=== PATIENT | female | born 1965 | race African-American/Black ===

== ENCOUNTER 2019-08-30 15:44 | Inpatient (IN) ==
--- NOTE | 2019-08-30 17:43 | PROVIDER DOCUMENTATION ---
HPI-General Adult - General Chief Complaint: Post Op Complaint Stated Complaint: NECK SWELLING Time Seen by Provider: 08/30/19 17:09 Source: patient Allergies/Adverse Reactions: Patient Allergies Allergy/AdvReac Type Severity Reaction Status Date / Time No Known Allergies Allergy Verified 08/30/19 17:13 Home Medications: Home Medication List Medication Instructions Recorded Confirmed Last Taken Type Losartan/Hydrochlorothiazide 1 tab PO DAILY 08/19/14 08/30/19 08/30/19 History [Hyzaar 100/25 Tablet] Ibandronate [Boniva] 150 mg PO DIRECTED 04/22/18 08/30/19 1 Month Ago History ~07/31/19 Amlodipine [Norvasc] 5 mg PO DAILY 07/12/19 08/30/19 08/30/19 History Magnesium Oxide 400 mg PO DIRECTED 07/12/19 08/30/19 1 Day Ago History ~08/29/19 Levothyroxine [Synthroid] 1 tab PO DAILY 08/07/19 08/30/19 08/30/19 History Folic Acid 1 mg PO DAILY 08/30/19 08/30/19 08/30/19 History - History of Present Illness -Gen Adult Nature of Presenting Problems: c/o right neck pain and swelling of several days duration on the site of insertion of a port-a-cath for treatment of lung cancer Location of Pain/Injury: reports: neck (right neck pain and swelling) Quality of Pain: reports: throbbing Timing: reports: still present Context/Activities at Onset: reports: none Modifying Factors: improves with: lying down Associated Symptoms: reports: denies symptoms Similar Symptoms Previously?: No Recently seen or treated by another doctor?: No Review of Systems - Adult - REVIEW OF SYSTEMS - ADULT Constitutional: reports: no symptoms reported Eyes: reports: no symptoms reported Ears, Nose, Mouth & Throat: reports: no symptoms reported Cardiovascular: reports: no symptoms reported Respiratory: reports: no symptoms reported Gastrointestinal: reports: no symptoms reported Genitourinary: reports: no symptoms reported Musculoskeletal: reports: neck pain Integumentary: reports: no symptoms reported Neurological: reports: no symptoms reported Psychiatric: reports: no symptoms reported Endocrine: reports: no symptoms reported Past History - Adult - PAST MEDICAL HISTORY-ADULT Review of Records: reports: Nursing Assessment Review, Medications Reviewed, Social history reviewed & non-contributory. Major Childhood Illnesses: reports: denies history Cardiovascular: reports: HTN Respiratory: reports: denies history Gastrointestinal: reports: denies history Obstetrical/Gynecological: reports: denies history Genitourinary: reports: denies history Musculoskeletal: reports: denies history Neurological: reports: denies history Endocrine/Immune: reports: denies history Other Conditions: reports: other cancer (breast) - PRIOR SURGERIES/PROCEDURES Surgical/Procedure History: reports: hysterectomy, other (right mastectomy) - IMMUNIZATION STATUS Childhood Immunizations: See Nurse Assessment Flu Vaccine: See Nurse Assessment - FAMILY HISTORY Family History: reviewed, not pertinent - SOCIAL HISTORY Smoking: denies Substance Use: none/never Alcohol Use Frequency: never Physical Exam-General - CONSTITUTIONAL General Appearance: appears well - EYES Eyes: PERRL/EOMI - HEAD, EARS, NOSE, MOUTH & THROAT HENMT: normocephalic/atraumatic - NECK Neck: other (tenderness with mild swelling around the port - a-cath area of the right neck) - RESPIRATORY Respiratory: chest non-tender, lungs clear, normal breath sounds - CARDIOVASCULAR Cardiovascular: regular rate, rhythm - GASTROINTESTINAL (ABDOMEN) Abdominal Exam: non tender, soft - MUSCULOSKELETAL Extremity: non-tender, no calf tenderness - SKIN Integumentary: normal color - NEUROLOGIC Neurologic: grossly normal - PSYCHIATRIC Psych/Mental Status: oriented x 3 Progress - PLAN OF CARE/RESULTS Progress/Plan/Lab Results: Vital Signs - 8 hr 08/30/19 16:17 Temperature 98.0 F Pulse Rate 93 H Respiratory Rate 18 Blood Pressure 152/103 O2 Sat by Pulse Oximetry 97 Orders Category Date Time Status US SOFT TISSUE HEAD/NECK [US] Stat Exams 08/30/19 17:15 Ordered - CONSULTS/PCP/HOSPITALIST Notification #1 *Consult/PCP/Hospitalist*: surgeon Dr ramos Time Discussed: 20:34 (want patient to be admitted to hospitalist service for anticoagulation and he will be on consult.) #2 Consult: Hospitalist Dr rojas Time Discussed: 09:10 Consult Disposition: Admit Departure - Departure Date of Disposition Decision: 08/30/19 Time of Disposition Decision: 21:29 DIAGNOSIS: Port-A-Cath in place, Blood clot in vein Disposition: ADMITTED INPATIENT 09 Certified Medical Emergency: Emergent Condition: Fair Referrals and Follow-Ups: Cameron,Filippo A., MD [Primary Care Provider] - - Critical Care Note This patient required my direct & personal management of CC.: No Attestation - Physician/ GILBERT Attestation Patient care was provided by Advanced Practice Provider:: No The physician spent face to face time with patient:: Yes Advanced Practice Provider documentation review:: Supervising physician onsite and consulted in the evaluation and care of this patient. The physician did have a face to face encounter with the patient.
--- NOTE | 2019-08-30 20:19 | Diag Imaging Result Doc PS360 ---
EXAM: US SOFT TISSUE HEAD/NECK HISTORY: post op port-a-cath edema/pain TECHNIQUE: Neck ultrasound COMPARISON: None. FINDINGS: No fluid collection in the right side of the neck. There is occlusive thrombus within the right jugular vein. These results were given to the ER physician. Electronically signed by Aj Ramos 08/30/2019 8:17 PM
[2019-08-30] MEDS ORDERED: ZOFRAN IV PRN (21:19)
[2019-08-30] MEDS ORDERED: MORPHINE IV PRN (21:19)
[2019-08-30] MEDS: HEPARIN 25,000 UNITS/D5W 25,000 UNIT/250 ML IV.SOLN IV SCH (22:22)
--- NOTE | 2019-08-30 22:34 | HISTORY AND PHYSICAL ---
CHIEF COMPLAINT: Pain in the right side of the neck. HISTORY OF PRESENT ILLNESS: This 54-year-old obese black female has a remote history of breast cancer and was recently diagnosed with a cancerous mass in her right upper lobe. Last week Dr. Madera put in a Port-A-Cath for her. Over the course of the week, she stated that her neck just did not feel right. She had a little bit of difficulty swallowing, but she called the surgical office about this problem. They stated as long as that she was not swelling up terribly that it should be just normal recovery. Well unfortunately, the patient woke up this morning and her neck was swelled and it was more tender on that side and clearly enlarged by her own recollection. She presented to the emergency room. The emergency room physician ordered a head and neck ultrasound, which showed a thrombosis of the right jugular vein which was occlusive. They contacted Dr. Cai and he advised admission with anticoagulation. PAST MEDICAL HISTORY: 1. Breast cancer 2002 with mastectomy. 2. Obesity. 3. Hypertension. 4. Hypothyroidism. PAST SURGICAL HISTORY: 1. Mastectomy. 2. Tubal ligation. 3. Hysterectomy. SOCIAL HISTORY: The patient has 4 children. 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 She is . She is a nonuser of tobacco, nonuser of alcohol. She has never been a smoker. FAMILY HISTORY: Significant for diabetes and colon cancer. Her grandfather also had lung cancer. Her mother had breast cancer and esophageal cancer. REVIEW OF SYSTEMS: The patient's weight has been stable. She has had a normal appetite. She admitted to a little bit of swallowing difficulty since her surgery to put in the Port-A-Cath. Mainly this was mild sense of obstruction or fullness in the neck. She denies any nausea or vomiting. She has not had any abdominal pain. Denies chest pain, shortness of breath or palpitations. She has not had any fever or chills. She states that her neck is tender but not exquisitely so. It is also swollen, according to her, since this morning when she woke up. She has not had any genitourinary complaints. She has no musculoskeletal complaints although she states that her legs are "always swollen." PHYSICAL EXAMINATION: VITAL SIGNS: 98, 93, 18, 152/103, 97% saturated on room air. GENERAL: She is a well-developed obese black female in no acute distress. She is alert, oriented, conversive and appropriate. The face is not swollen. NECK: The right side of her neck shows a firm, masslike protrusion on the right side above the tiny incision made for her Port-A-Cath which is right about the level of the collarbone. The Port- A-Cath itself is not tender. The right side of her neck is tender, is very firm and relatively fixed. I do not detect any bruits. LUNGS: Clear to auscultation bilaterally. CARDIOVASCULAR: Regular at approximately 90 beats per minute at the time of my examination. ABDOMEN: Protuberant and difficult to examine. EXTREMITIES: Show that she has large legs but I cannot find any edema in the lower extremities. From neuropsych standpoint, the patient is functioning at baseline and there are no focal neurological deficits. LABORATORIES: No labs were drawn. RADIOLOGIC STUDIES: Ultrasound showed occlusive thrombus within the right jugular vein. ASSESSMENT AND PLAN: 1. Dr. Cai will be consulted to help us follow up with this. We will start the patient on a heparin IV protocol and monitor her progress. She will have q.6 hours PTTs drawn and adjustments will be made according to those findings. 2. The patient's thyroid and blood pressure medications will be continued as previously and will use p.r.n.s as necessary to keep her pressure under reasonable control. 3. Consideration of consultation with Dr. Carbajal may be in order. cc: Christopher Velasco MD [facility]
[2019-08-30 23:07] LABS: BASO# 0.01 X1000 (0.0-0.2); BASO% 0.1 % (0.0-0.8); EOS# 0.02 X1000 (0.0-0.7); EOS% 0.2 % (0.0-10.0); HEMATOCRIT 37.8 % (37.0-47.0); HEMOGLOBIN 11.9 g/dL (12.0-16.0); IMM GRAN# 0.02 X1000 (0.0-0.04); IMM GRAN% 0.2 % (0.0-0.5); LYMPH# 1.35 X1000 (1.2-3.4); LYMPH% 16.8 % (20.5-51.1); MCH 25.5 PG (27-31); MCHC 31.5 g/dL (33-37); MCV 80.9 FL (81-99); MONO# 0.65 X1000 (0.11-0.59); MONO% 8.1 % (1.7-9.3); MPV 8.8 FL (7.4-10.4); NEUT# 5.99 X1000 (1.4-6.5); NEUT% 74.6 % (42.2-75.2); PLT 259 X1000 (130-400); RBC 4.67 XMIL (4.2-5.4); WBC 8.04 X1000 (4.8-10.8)
[2019-08-30 23:30] LABS: AGAP 13; ALB/GLOB RATIO 0.9; ALBUMIN 3.6 g/dL (3.5-5.0); ALKALINE PHOSPHATASE 62 U/L (32-104); BUN 12 mg/dL (8-22); CALCIUM 8.6 mg/dL (8.8-10.2); CHLORIDE 100 mmol/L (98-107); COSMO 274; CREATININE 0.6 mg/dL (0.5-0.9); ESTIMATED GFR > 60; GLUCOSE 110 mg/dL (70-104); GOT 10 U/L (10-30); GPT 10 U/L (10-36); POTASSIUM 3.6 mmol/L (3.5-5.1); SODIUM 137 mmol/L (136-145); TCO2 24 mmol/L (25-35); TOTAL BILIRUBIN 0.56 mg/dL (0.20-1.00); TOTAL PROTEIN 7.5 g/dL (6.3-8.3)
[2019-08-30 23:38] LABS: INR 1.11; PROTIME 14.5 Seconds (11.0-16.0)
[2019-08-30 23:39] LABS: PTT 30.2 Seconds (22.3-41.8)
[2019-08-31] MEDS: TYLENOL PO PRN ×2 (05:41→15:44)
[2019-08-31] MEDS ORDERED: HEPARIN IV PRN (06:47)
[2019-08-31] MEDS ORDERED: NORVASC PO SCH (09:45)
[2019-08-31] MEDS ORDERED: FOLIC ACID PO SCH (09:45)
[2019-08-31] MEDS: HEPARIN 25,000 UNITS/D5W 25,000 UNIT/250 ML IV.SOLN IV SCH ×2 (11:12→14:04)
--- NOTE | 2019-08-31 13:04 | PROGRESS NOTE ---
DATE: 08/31/2019 SUBJECTIVE: This morning, Ms. Way refers to be doing well. According to her the right-sided neck swelling seems to be getting better, and she is able to swallow a lot better now than yesterday. OBJECTIVE: Vital signs: Blood pressure is 125/92, pulse of 110, respirations 20, temperature is 98.2 degrees. The patient is saturating 92% on room air. General: Ms. Way is a 54-year-old, morbidly obese female. She has a BMI of 48.8. She is in bed in no distress. HEENT: Mucosa is pink and moist. Anicteric. Acyanotic. Neck: Supple. There is some minimum swelling on the right lateral neck almost to the angle of the jaw. Chest: Good air entry bilateral. There were no crepitations, no rhonchi. Cardiovascular: Regular rate and rhythm. There are no murmurs, no rubs, no gallops. REAL ESTATE SUBAGENT: Patient is awake, alert, oriented. There is no focal neurological deficit. Placed on the chest wall, documented that there is a recently inserted right upper chest port which has not been accessed since placement. The patient also has a right mastectomy. LABORATORY DATA: From yesterday has been reviewed. The patient has mild microcytic anemia. Chemistry is completely unremarkable. IMAGING STUDIES: A head and neck ultrasound did show an occlusive thrombus within the right jugular vein. ASSESSMENT: 1. Deep vein thrombosis in the right jugular vein associated with recent port placement. The patient is currently on heparin drip, which we plan to continue and he is awaiting evaluation from surgery. We will also notify her oncologist. 2. Hypothyroidism. Will continue with her levothyroxine. 3. Hypertension, controlled on amlodipine. 4. 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 The patient follows up with Dr. Carbajal. 5. Morbid obesity with body mass index of 48.8. 6. Remote history of right breast cancer status post mastectomy, radiation and chemotherapy at the time. This was in 2002. PLAN: So, in general, I think Ms. Way refers to be doing a little better. Her dysphagia has improved and her neck swelling is also getting better. She is currently on heparin, which we are going to continue until patient is evaluated by Surgery. I have also notified her oncologist-- Dr Carbajal. Recommendation to continue heparin for now. cc: Tim Livingston MD [facility]
--- NOTE | 2019-08-31 14:14 | Diag Imaging Result Doc PS360 ---
EXAM: CHEST-PORTABLE HISTORY: sob TECHNIQUE: Chest single view COMPARISON: 08/07/2019 FINDINGS: Poor inspiratory effort. The heart is enlarged. There is a small right pleural effusion. There is atelectasis or infiltrates in the right lung. There is a right jugular portacatheter. No pneumothorax. Surgical clips in the right axilla. IMPRESSION: Worsening right infiltrates and atelectasis with a right pleural effusion. Electronically signed by Aj Ramos 08/31/2019 2:12 PM
--- NOTE | 2019-08-31 15:22 | GENERAL SURGERY CONSULTATION ---
DATE: 08/31/[address] is a 54-year-old who has a history of breast cancer. Has had a previous left-sided port. Now she has lung cancer and had a port placed on her right internal jugular vein by Dr. Madera 10 days ago. She started getting increased swelling on the side of her neck over the past few days and then sought medical attention. The ultrasound of her internal jugular vein showed internal jugular vein thrombosis. Her port has not been accessed. Other medical problems include obesity, hypertension, hypothyroidism. PAST SURGICAL HISTORY: Prior surgery includes a mastectomy, tubal ligation, hysterectomy, a left- sided port. MEDICATIONS: Listed. SOCIAL HISTORY: She has 4 children. 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 She is . She does not smoke or use alcohol. FAMILY HISTORY: Pertinent for diabetes, colon cancer and lung cancer. REVIEW OF SYSTEMS: Negative in 10 subsystems except those as noted above. PHYSICAL EXAMINATION: Temperature is 99.2 degrees, heart rate 97, blood pressure 112/79. She has some mild tenderness on the right side of her neck. Her port is in the right subclavian area. Bilateral breath sounds are present. Heart: Has a regular rate and rhythm. The right arm is swollen probably from chronic lymph edema. Abdomen: Soft and nontender. Otherwise her extremities are without discomfort. She is awake, alert and oriented. LABS: White count is 8000. Chemistry is fine. ASSESSMENT: Right internal jugular vein thrombosis, right internal jugular vein port placement 10 days postop. In my opinion, as long as the port is functional I would leave it in place and use it. The anticoagulation is just to serve the purpose of preventing propagation of the clot. Removing the port and catheter will not change the clot. If the port is removed then the new quandary will be where to place another port for chemotherapy. I will let Dr. Madera know of the patient's room number when he returns on Monday. cc: Jeffrey Cai MD [facility]
[2019-08-31] MEDS: HYZAAR 50/12.5 MG PO SCH (15:59)
[2019-08-31] MEDS ORDERED: HYZAAR 100/12.5 MG TAB PO SCH (16:00)
[2019-09-01] MEDS: HEPARIN 25,000 UNITS/D5W 25,000 UNIT/250 ML IV.SOLN IV SCH ×2 (03:25→05:55)
[2019-09-01] MEDS: SYNTHROID PO SCH (06:18)
[2019-09-01] MEDS: TYLENOL PO PRN ×2 (06:23→20:07)
[2019-09-01 06:35] LABS: HEMATOCRIT 37.4 % (37.0-47.0); HEMOGLOBIN 11.9 g/dL (12.0-16.0); MCH 26.2 PG (27-31); MCHC 31.8 g/dL (33-37); MCV 82.4 FL (81-99); MPV 8.9 FL (7.4-10.4); RBC 4.54 XMIL (4.2-5.4); RDW 14.3 % (11.5-14.5); WBC 7.39 X1000 (4.8-10.8)
[2019-09-01 06:52] LABS: IRON SATURATION 6 %; TIBC 293 ug/dL; TOTAL IRON 18 ug/dL (49-151); UNBOUND IRON 275 ug/dL (112-346)
[2019-09-01 07:07] LABS: AGAP 12; ALBUMIN 3.7 g/dL (3.5-5.0); BUN 13 mg/dL (8-22); CALCIUM 8.6 mg/dL (8.8-10.2); CHLORIDE 103 mmol/L (98-107); COSMO 278; CREATININE 0.7 mg/dL (0.5-0.9); ESTIMATED GFR > 60; GLUCOSE 113 mg/dL (70-104); PHOSPHORUS 2.9 mg/dL (2.7-4.5); POTASSIUM 3.7 mmol/L (3.5-5.1); SODIUM 139 mmol/L (136-145); TCO2 24 mmol/L (25-35)
[2019-09-01] MEDS: NORVASC PO SCH (08:22)
[2019-09-01] MEDS: FOLIC ACID PO SCH ×2 (08:23→20:07)
[2019-09-01] MEDS: HYZAAR 50/12.5 MG PO SCH (08:23)
[2019-09-01 08:59] LABS: FERRITIN 289 ng/mL (13-150)
[2019-09-01] MEDS: VENOFER 200 MG in NS 150 ML IV SCH (09:06)
--- NOTE | 2019-09-01 09:06 | PROGRESS NOTE ---
DATE: 09/01/2019 SUBJECTIVE: This morning, Ms. Way refers to be doing well. The swelling on the right neck seems to be getting slightly better, and she is also swallowing a lot better. OBJECTIVE: Vital Signs: Blood pressure is 147/98, pulse of 88, respirations 21, temperature is 99.1 degrees. General: Ms. Way is a 54-year-old female. She is in bed. No distress. HEENT: Mucosa is pink and moist. Anicteric. Acyanotic. Neck: Supple. Mild tenderness and swelling over the right lateral neck. Chest: Good air entry bilaterally. There were no crepitations, no rhonchi. Cardiovascular: Regular rate and rhythm. No murmurs, no rubs, no gallops. GI: Abdomen is soft, nontender. Bowel sounds present. Extremities: No pedal edema. HEAD BAGGAGE PORTER: The patient is awake, alert, and oriented. Musculoskeletal: There is a recent Port- A-Cath on the right upper chest. LABORATORY DATA: CBC is unremarkable, just normocytic anemia. Chemistry is also reviewed, completely within normal range. Folate is 8.8. Iron studies show remarkable iron deficiency. ASSESSMENT: 1. Right jugular occlusive deep venous thrombosis associated with recent port placement. The patient is currently on heparin drip. We are going to switch this to twice daily Lovenox. The patient has also been evaluated by Surgery. I think the plan is to access the port, and if the port is functional, then just leave it and treat the deep venous thrombosis with the anticoagulant. 2. Hypothyroidism. The patient is on levothyroxine. 3. Uncontrolled hypertension. We have increased her amlodipine. 4. Morbid obesity. Body mass index of 48.8 with management advised. 5. Recently diagnosed stage IV adenocarcinoma of the right upper lung with bronchoalveolar features associated with malignant pleural effusions. The patient follows up with Dr. Carbajal. 6. Remote history of right breast cancer, status post mastectomy, radiation, and chemotherapy in 2002. 7. Iron deficiency. The patient will be given infusion of Venofer. 8. Folate deficiency. We started her on folate supplement. In general, I think Ms. Way is doing well. We are going to switch her heparin to twice daily subcutaneous Lovenox, a therapeutic dose. We will be pending Surgery evaluation of the port today. I have notified Ms. Way's oncologist, Dr. Carbajal, since yesterday. cc: Tim Livingston MD [facility]
[2019-09-01] MEDS: LOVENOX SUBQ SCH ×2 (09:41→20:07)
--- NOTE | 2019-09-01 10:38 | GENERAL SURGERY PROGRESS NOTE ---
DATE: 09/01/[address] is doing generally well. We accessed her port in a sterile fashion today. It aspirates blood easily. It irrigates easily. We will start using her port for IV infusion or whatever it needs to be used for. She will continue on anticoagulation for her DVT but her port is functional and we will keep it. cc: Jeffrey Cai MD [facility]
[2019-09-02] MEDS: HYZAAR 50/12.5 MG PO SCH (03:29)
[2019-09-02] MEDS: NORVASC PO SCH (03:29)
[2019-09-02] MEDS: SYNTHROID PO SCH ×2 (03:29→06:04)
[2019-09-02] MEDS: TYLENOL PO PRN (05:51)
[2019-09-02 08:24] VITALS: BP 144/81
[2019-09-02] MEDS: LOVENOX SUBQ SCH (08:39)
[2019-09-02] MEDS: FOLIC ACID PO SCH (08:39)
[2019-09-02] MEDS: VENOFER 200 MG in NS 150 ML IV SCH (08:39)
--- NOTE | 2019-09-02 14:06 | HEMO/ONC CONSULTATION ---
DATE: 09/02/2019 REASON FOR CONSULTATION: Right internal jugular deep venous thrombosis at the site of Port-A- Cath. HISTORY OF PRESENT ILLNESS: This is a 54-year-old, obese, black female with a remote history of breast cancer but was recently diagnosed with metastatic right lung adenocarcinoma. She had a Port-A-Cath placed last week for the purpose of chemotherapy treatment for her lung cancer. She stated that over the course of last week, her neck has not been feeling normal. She has had some difficulty swallowing. She woke up Julio morning with significant swelling and tenderness on the right side of her neck. In the ER, an ultrasound showed thrombosis of the right jugular vein which was occlusive. Thus, they began anticoagulation per Dr. Cai's orders. PAST MEDICAL HISTORY: 1. Breast cancer with mastectomy in 2002. 2. Obesity. 3. Hypertension. 4. Hypothyroidism. PAST SURGICAL HISTORY: Mastectomy, tubal ligation, hysterectomy. SOCIAL HISTORY: The patient denies tobacco, alcohol, or illicit drug use. ALLERGIES: No known drug allergies. HOME MEDICATIONS: Amlodipine, folic acid, Boniva, levothyroxine, Hyzaar 100/25, magnesium oxide, and Xarelto. REVIEW OF SYSTEMS: Pertinent positives are noted in the HPI. All other review of systems are negative. PHYSICAL EXAMINATION: Vital Signs: Temperature 98.9 degrees, pulse rate 105, respiratory rate 18, blood pressure 144/81, O2 saturation 94% on room air. She is in 0/10 pain. General: This is an obese female in no acute distress. There is mild swelling and tenderness over the right lateral neck. HEENT: Sclerae are anicteric. PERRLA. Oral mucosa is normal. Cardiovascular: Normal S1 and S2. Heart rate and rhythm slightly elevated. Respiratory: Lungs are clear to auscultation. Normal respiratory effort. Gastrointestinal: Abdomen is protuberant, soft, nontender. Extremities: She does not appear to have any lower extremity edema. LABORATORY DATA: From yesterday, WBCs 7.39, hemoglobin 11.9, hematocrit 37.4, platelet count 254,000. Calcium 8.6. Iron 18, iron percent saturation 6, ferritin 289, vitamin B12 of 561, folate 8.8. ASSESSMENT AND PLAN: 1. Right jugular occlusive deep vein thrombosis associated with recent port placement. Surgery ordered attempt to access the port, which showed that the port is functional. It aspirated blood easily and infuses easily. Dr. Cai states continue anticoagulation for deep venous thrombosis but her port is otherwise functional. The patient is going to be discharged home on Xarelto 15 mg twice a day. We will follow up outpatient. 2. Iron deficiency anemia. The patient was given a dose of intravenous Venofer today. We will follow up for adequate response and further treatment in the clinic. 3. Folate deficiency. The patient was given a prescription of folic acid. Again, we will repeat those levels and continue to follow. 4. Metastatic right lung adenocarcinoma with bronchoalveolar features and malignant pleural effusion, stage IV. The patient was to begin treatment in the clinic today with Alimta, carboplatin, and Keytruda but we will reschedule this to begin within the next week. We will follow up with the patient as an outpatient in the clinic. Dictated by ANA MARIA Cruz for Kyler Carbajal MD cc: Kyler Carbajal MD [facility]
[2019-09-02] MEDS ORDERED: XARELTO PO SCH (21:00)
--- NOTE | 2019-09-03 09:21 | DISCHARGE SUMMARY ---
ADMISSION DATE: 08/30/2019 DISCHARGE DATE: 09/02/2019 DISPOSITION: Home. FOLLOWUP: Followup will be with: 1. Dr. Carbajal. 2. Dr. Barnes. 3. Dr. Madera. CONSULTATIONS DURING THIS ADMISSION: 1. Surgery was consulted. The patient was seen by Dr. Cai. 2. Hematology/Oncology was consulted. The patient was seen by Dr. Carbajal. INVASIVE PROCEDURES DONE DURING THIS ADMISSION: None. IMAGING STUDIES OF SIGNIFICANCE: 1. Ultrasound of the neck and head was done, which showed an occlusive thrombus within the right jugular vein. 2. A chest x-ray shows infiltrate and atelectasis with right pleural effusion. ADMISSION DIAGNOSIS: Right internal jugular deep venous thrombosis. DIAGNOSES AT THE TIME OF DISCHARGE: 1. Catheter-associated right internal jugular occlusive deep venous thrombosis. 2. Recently diagnosed stage IV adenocarcinoma of the right upper lung with bronchoalveolar features associated with malignant pleural effusion. 3. Remote right breast cancer, status post mastectomy, radiation and chemotherapy in 2002. 4. Hypothyroidism. 5. Hypertension. 6. Morbid obesity with body mass index of 47.1. 7. Folate deficiency. DISCHARGE MEDICATIONS: 1. Hydrochlorothiazide with losartan. 2. Boniva 150 mg p.o. 3. Magnesium oxide 400 p.o. daily. 4. Amlodipine 10 mg p.o. daily. 5. Rivaroxaban 50 mg b.i.d. 6. Folic acid 1 mg b.i.d. 7. Levothyroxine 150 mcg p.o. daily. PRESENTING COMPLAINT: Right-sided neck pain. HISTORY OF PRESENTING COMPLAINT: Ms. Way is a 54-year-old female who was recently diagnosed with right upper lobe stage IV adenocarcinoma of the lung with bronchoalveolar features, had a port placed in by Dr. Madera a week ago, and since then, she started having some discomfort around the right side of the neck, which became progressively worse, which was associated with some mild difficulty swallowing, so she came to the emergency department to be evaluated. She was found on ultrasound to have an occlusive clot in the right jugular vein. She was subsequently admitted for further medical care. HOSPITAL COURSE: Ms. Way was admitted to [facility], was started on heparin drip. Progressively, the swelling and the symptoms got a lot better. Surgery was consulted. She was seen by Dr. Cai, who accessed the port and found that it was functioning and without any difficulty. He recommended to continue using the port, and there was no need to remove it. Hematology/Oncology was also consulted. The patient was seen by Dr. Carbajal, who also gave recommendation as to anticoagulants for outpatient management. During the hospital course, Ms. Way was also found to be remarkably iron deficient. She was given 1 infusion of Venofer, and she will follow up with Dr. Carbajal. Folate level was also low, and she was started on b.i.d. folic acid. This morning, Ms. Way refers to be doing a lot better. The swelling and the difficulty swallowing has all improved. We think she is stable to be discharged. Currently, her blood pressure is 144/81, pulse of 105, respirations 18, temperature is 98.[address]'s physical exam is, for the most part, unremarkable. She is evaluated to be stable for discharge. All the discharge instructions have been discussed with her. I have also gotten in touch with her oncologist (Dr. Carbajal) today. TIME SPENT FOR DISCHARGE: 35 minutes. cc: Tim Livingston MD
== END 2019-09-02 12:30 | disposition home or self-care (01) | DRG 300 ==
LOC: ED 15:44 → SUATTDRO 21:43 → 2N 21:43
PROVIDERS: ATTEND Internal Medicine